=== PATIENT | female | born 1945 | race Asian ===

== ENCOUNTER 2022-07-25 06:45 | Day surgery (SDC) | payer OTHER ==
[2022-07-24 19:12] VITALS: BMI 19.5
[2022-07-25] MEDS ORDERED: LIDOCAINE HCL/PF 2% SDV 5ML VIAL ONE (08:10)
[2022-07-25] MEDS ORDERED: PROPOFOL 60 ML ONE (08:10)
[2022-07-25 08:50] VITALS: RESP 16
[2022-07-25 10:05] VITALS: BP 118/54; PULSE 66; TEMP 97
== END 2022-07-25 10:41 | disposition home or self-care (01) ==
LOC: FASU-ENDO 06:45
PROVIDERS: ATTEND Internal Medicine
PROC: 0DJD8ZZ Inspection of Lower Intestinal Tract, Via Natural or Artificial Opening Endoscopic (ICD-10-PCS; principal; 2022-07-25 09:06)
DX: Z12.11 Encounter for screening for malignant neoplasm of colon (principal); K64.8 Other hemorrhoids
CPT/HCPCS: 87426; C9803-CS; U0003; U0005